=== PATIENT | female | born 1960 | race Caucasian/White ===

== ENCOUNTER 2018-04-21 18:17 | Emergency (ER) | payer OTHER | END 2018-04-21 19:55 | disposition left against medical advice (07) | LOC: FTE 19:55 | DX: M25.561 Pain in right knee (principal); M25.562 Pain in left knee; J45.909 Unspecified asthma, uncomplicated; I10 Essential (primary) hypertension | CPT/HCPCS: 99283; Z7502 ==

== ENCOUNTER 2018-12-27 11:15 | Emergency (ER) | payer OTHER ==
[2018-12-27] MEDS: ACETAMINOPHEN 500 MG TAB PO (12:21)
[2018-12-27] MEDS: CYCLOBENZAPRINE 10 MG TAB PO (12:22)
[2018-12-27] MEDS: traMADol 50 MG TAB PO (12:22)
[2018-12-27] MEDS: HYDROCODONE/APAP (10/325) TAB PO (14:05)
== END 2018-12-27 14:07 | disposition home or self-care (01) ==
LOC: FTE 11:15
DX: S40.022A Contusion of left upper arm, initial encounter (principal); J45.909 Unspecified asthma, uncomplicated; I10 Essential (primary) hypertension; S29.001A Unspecified injury of muscle and tendon of front wall of thorax, initial encounter; V43.52XA Car driver injured in collision with other type car in traffic accident, initial encounter
CPT/HCPCS: 71046; 93005; 99284-25